=== PATIENT | male | born 1970 | race Caucasian/White ===

== ENCOUNTER → 2020-01-23 | Outpatient (CLI) | payer BC ==
[~2020-01-23] MED LIST: ADVIL200 M3 PO; AMLODIPINE BESY10 MG PO
== END ==
LOC: LAB
PROVIDERS: ATTEND Orthopaedic Surgery Sports Medicine
DX: Z01.812 Encounter for preprocedural laboratory examination (principal); Z20.828 Contact with and (suspected) exposure to other viral communicable diseases

== ENCOUNTER 2020-01-29 06:06 | Day surgery (SDC) | payer OTHER ==
[~2020-01-29] VITALS: Ht 167.6 cm; Wt 147.4 kg
[2020-01-29 07:00] VITALS: BP 141/96
--- NOTE | 2020-01-29 07:47 | EKG ---
[facility] [place] [place] [address] ELECTROCARDIOGRAM REPORT Name: FARIBA HASKINS Room #: 150-1 [facility] M.R.#: [id number] Admission: 01/29/20 Attend Phys: Everton Foote MD Discharge: Date of : 70 Report #: [id number] THIS REPORT FOR: cc: Quintin Carter,Vince Dutton MD [facility] THIS REPORT FOR: //name// [facility] Test Date: 2020-01-29 Test Time: 06:51:11 Pat Name: FARIBA HASKINS Department: Room: Gender: Court Stenographer: LIDIA : 1970 Requested By: Lulu Connelly Order Number: [id number] MD: Vince Sweet Measurements Intervals [facility] Rate: 76 P: -10 MT: 212 QRS: -23 QRSD: 107 T: 14 QT: 375 QTc: 422 Interpretive Statements Sinus rhythm Prolonged MT intervaljavascript:perform('study_confirm'); Borderline left axis deviation No previous ECG available for comparison Electronically Signed On 01-29-2020 7:46:56 CDT by Vince Sweet [email or web address] <ELECTRONICALLY SIGNED> By: Vince Sweet MD, FACC 01/29/20 0746 [id number] Vince Sweet MD, [facility] /EPI
[2020-01-29 10:09] VITALS: BP 141/96
--- NOTE | 2020-01-29 16:14 | O ---
[address] [address] OPERATIVE REPORT Name: FARIBA HASKINS Room #: DEP [facility]..#: [id number] Admission: 01/29/20 Attend Phys: Everton Foote MD Discharge: 01/29/20 Date of : 70 Report #: [id number] THIS REPORT FOR: cc: Quintin Carter John E. DO McCabe, Michael P. MD ~ CC: Quintin Foote DATE OF SERVICE: 01/29/2020 SERVICE: Orthopedics. FACILITY: [facility]. SURGEON: Everton Foote MD SECRETARY SPECIALIST: Margarita Ireland NP INDICATION FOR SECRETARY SPECIALIST: Extremity positioning, arthroscope and suture management, assistance with repair. PREOPERATIVE DIAGNOSES: 1. Work-related injury, right shoulder. 2. Right shoulder rotator cuff tear. 3. Right shoulder bursitis. 4. Right shoulder impingement syndrome. 5. Right shoulder pain. POSTOPERATIVE DIAGNOSES: 1. Work-related injury, right shoulder. 2. Right shoulder rotator cuff tear. 3. Right shoulder bursitis. 4. Right shoulder impingement syndrome. 5. Right shoulder pain. 6. Right shoulder biceps tendon tear. PROCEDURES: 1. Right shoulder arthroscopic rotator cuff repair of supraspinatus and subscapularis. 2. Right shoulder arthroscopic biceps tenodesis. 3. Right shoulder extensive arthroscopic debridement. 4. Right shoulder arthroscopic subacromial decompression. COMPLICATIONS: None. [address] [address] OPERATIVE REPORT Name: FARIBA HASKINS Room #: DEP [facility]#: [id number] Admission: 01/29/20 Attend Phys: Everton Foote MD Discharge: 01/29/20 Date of : 70 Report #: [id number] DRAINS: None. SPECIMENS: None. ANESTHESIA: General with regional. FINDINGS: 1. Upper border subscapularis tear repaired with triple loaded Carreon and Nephew Healicoil anchor x 1 incorporating the biceps tenodesis. 2. Focal full thickness supraspinatus tear, treated with a double row repair with 4.75 mm Healicoil with MULTIFIX lateral row. 3. Mild chondromalacia of the humeral head. HISTORY: The patient is a gentleman who works in active physically demanding job and had a work injury to his right shoulder. He had tried initial conservative care without sufficient relief. He had an MRI, which showed a rotator cuff tear and he had findings consistent with such. We had discussion about treatment options including risks, benefits, alternatives and indications of surgical treatment. Risks include but not limited to pain, bleeding, infection, injury to nerves or blood vessels, persistent pain despite surgical intervention, failure of any repairs, progression of preexisting chondral injury, stiffness, need for further surgery as well as complications related to anesthesia such as stroke, heart attack, pulmonary complications, thromboembolic disease and . Despite these risks, he wished to proceed. PROCEDURE IN DETAIL: After right upper extremity was correctly identified in the preoperative holding area as the operative extremity, the patient underwent placement of regional nerve block by Anesthesia, then taken to the operating room, where general anesthesia was induced without complication. He was padded appropriately. Prophylactic antibiotics were administered at appropriate time and seated in beach chair position. Right upper extremity was then prepped and draped in standard sterile fashion. Timeout procedure performed. Standard posterior viewing portal was established followed by an anterior interval portal. Diagnostic arthroscopy revealed the above findings. There was an upper border subscapularis tear and there was a partial thickness tear of the biceps tendon, which overall was rather diminutive in size and quality. It had an atypical insertion with some tethering to the superior capsule as well. The undersurface of the leading edge of the supraspinatus had an obvious small, full thickness rotator cuff tear. A working portal was cannulated through this tear and then debridement was performed debriding the anterior interval and excising this with a shaver as well as debriding some fraying of the labrum anteriorly, posteriorly and superiorly and then the rotator cuff was debrided at the subscapularis insertion and the undersurface of the supraspinatus. The subscapularis insertion of the lesser tuberosity was then abraded with the [facility] [address] [place] [address] OPERATIVE REPORT Name: FARIBA HASKINS Room #: DEP [facility] M.R.#: [id number] Admission: 01/29/20 Attend Phys: Everton Foote MD Discharge: 01/29/20 Date of : 70 Report #: [id number] shaver and then a Carreon and Nephyamilet 5.5 mm PEEK triple-loaded Healicoil suture anchor was placed and one mattress was placed, sutured through the upper border subscapularis and then a stitch was placed through the biceps as well as through the subscapularis incorporating the tenodesis into the upper border simple stitch and then the third stitch was used for the tenodesis with a cerclage stitch as well as the second limb passed through the biceps providing a locking pinching mechanism and then these were all tied and secured and then the biceps was transected at its superior labral insertion and the biceps stump was resected with the shaver. The debridement was then completed intra-articularly. The scope was placed in subacromial space and there was really a very thick hypertrophied bursa. So, a thorough bursectomy was performed with the shaver working anteriorly, posteriorly and then around laterally underneath the deltoid. The rotator cuff was then debrided at the site of the supraspinatus tear and the tuberosity was abraded as well and then the 4.75 mm double loaded Healicoil suture anchor with tape was deployed in the anatomic footprint and 2 mattress sutures were then placed, which advanced the rotator cuff to the footprint with his size and active lifestyle as well as he needed to be a single parent. I favored a stronger repair in order to avoid the risk of dehiscence of the repair or failure of the repair if at all possible. The two limbs of the sutures were then passed back through the anterior portion of the rotator cuff and then all 4 limbs were placed into a MULTIFIX lateral row anchor, which was placed in the standard fashion providing good compression of the rotator cuff along the lateral aspect of the tissue. Suture tails were cut and then the posterior cutting block technique was used to perform the acromioplasty of the right shoulder. The arthroscopic effusion was then drained, instruments were removed. The portal sites were closed. Sterile dressing was applied. The patient was placed in abduction pillow sling, was awakened from anesthesia and taken to recovery room in stable condition. There were no complications and all counts were recorded as correct. <ELECTRONICALLY SIGNED> By: Everton Foote MD 01/29/20 1614 [id number] Everton Foote MD /nt
== END 2020-01-29 10:50 | disposition home or self-care (01) ==
LOC: OR → TBA 06:06 → OR 06:06
PROVIDERS: ATTEND Orthopaedic Surgery Sports Medicine
DX: M25.511 Pain in right shoulder (principal); M75.51 Bursitis of right shoulder; M75.41 Impingement syndrome of right shoulder; S46.011A Strain of muscle(s) and tendon(s) of the rotator cuff of right shoulder, initial encounter; S46.211A Strain of muscle, fascia and tendon of other parts of biceps, right arm, initial encounter; I10 Essential (primary) hypertension; Z98.890 Other specified postprocedural states; Z79.899 Other long term (current) drug therapy; X58.XXXA Exposure to other specified factors, initial encounter; Y93.89 Activity, other specified; Y92.89 Other specified places as the place of occurrence of the external cause; Y99.8 Other external cause status
CPT/HCPCS: 50010; 50101; 50172; 50733; 50935; 51320; 56524; 56527; 56617; 57103; 57128; 58139; 58194; 58196; 62110; 62900; 64039; 70005